=== PATIENT | female | born 1940 | race Caucasian/White ===

== ENCOUNTER 2019-05-26 06:20 | Inpatient (IN) | payer MEDICARE, OTHER ==
[2019-05-26] MEDS ORDERED: NALOXONE 0.4 MG/ML 1 ML VIAL IV PRN (07:21)
--- NOTE | 2019-05-26 07:34 | ED ---
Abdominal Pain HPI - General Chief Complaint: Abdominal Pain Stated Complaint: Kidney Stones Time Seen by Provider: 05/26/19 06:28 Source: patient Mode of arrival: ambulatory Limitations: no limitations - History of Present Illness Initial Comments: Yu is a pleasant 78-year-old female with a history of kidney stones who presents to the emergency department today as a transfer from [facility] for further management of bilateral ureteral stones with mild to moderate hydronephrosis bilaterally, normal kidney function and a urinary tract infe ction. Patient reports she's been feeling unwell throughout the week, she was trying to make it through the weekend until her son could come home and provide transport to the hospital however on Tuesday evening pain became unbearable and her right flank she became nauseated began vomiting and was transported to the [facility] where a full workup revealed a urinary tract infection, computed tomography scan revealed bilateral kidney stones with [id number] hydronephrosis but the lab resulted with a white count of 13 and normal kidney function with a creatinine of 1. The outside facility patient received Rocephin for her urinary tract infection, 3 doses of 4 mg of Zofran and 3 doses of 4 mg of morphine. On arrival to the emergency department patient still reports right-sided flank pain, mild nausea but no vomiting in the past few hours and a generalized feeling of malaise. - Related Data Home Medications Medication Instructions Recorded Confirmed Naproxen Sodium [Aleve] 220 mg PO DAILY 05/26/19 05/26/19 amLODIPine [Norvasc] 10 mg PO DAILY 05/26/19 05/26/19 Allergies Allergy/AdvReac Type Severity Reaction Status Date / Time Tetanus Vaccines and Toxoid Allergy Rash/Hives Verified 05/26/19 07:26 Review of Systems ROS Statement: Those systems with pertinent positive or pertinent negative responses have been documented in the HPI. ROS Other: All systems not noted in ROS Statement are negative. Past Medical History Past Medical History: Hypertension History of Any Multi-Drug Resistant Organisms: None Reported Past Surgical History: Back Surgery, Orthopedic Surgery Additional Past Surgical History / Comment(s): Left Hip replacement Past Psychological History: No Psychological Hx Reported Smoking Status: Never smoker Past Alcohol Use History: None Reported Past Drug Use History: None Reported General Exam - General Exam Comments Initial Comments: Physical Exam GENERAL: Patient is well-developed and well-nourished. Patient is nontoxic and well- hydrated and is in no distress. HENT: Normocephalic, Atraumatic. EYES: PERRL, EOMI PULMONARY: Unlabored respirations. No audible rales rhonchi or wheezing was noted. CARDIOVASCULAR: There is a regular rate and rhythm without any murmurs gallops or rubs. ABDOMEN: Soft and nontender with normal bowel sounds. Right flank pain SKIN: Skin is clear with no lesions or rashes and otherwise unremarkable. : Deferred NEUROLOGIC: Patient is alert and oriented x3. Moving all extremities spontaneously MUSCULOSKELETAL: Normal extremities with adequate strength and full range of motion. No lower extremity swelling or edema. No calf tenderness. PSYCHIATRIC: Normal psychiatric evaluation Limitations: no limitations Course Vital Signs 05/26/19 06:23 Temperature 98.0 F Pulse Rate 71 Respiratory 20 Rate Blood Pressure 137/78 O2 Sat by Pulse 92 L Oximetry Medical Decision Making - Medical Decision Making care was discussed with Dr. soriano the transferring physician. Patient was seen and evaluated immediately upon arrival to the emergency department, transfer records including labs and imaging were reviewed Repeat labs including CBC and CMP were ordered Patient care was discussed with urology Dr. Sharma who recommends patient be made nothing by mouth he will evaluate her images and repeat labs and make a decision if she is eligible for stenting today Given the patient's advanced age and medical comorbidities patient will be admitted to medicine for UTI and pain management, Dr. Sharma will be on consult Patient care was discussed with [facility] [place] Physician Dr Dietz who acepts admission. Disposition Clinical Impression: Ureteral stone with hydronephrosis, UTI (urinary tract infection), Nausea and vomiting Disposition: ADMITTED IP TO THIS HOSP Condition: Stable Referrals: Zay Puri DO [Primary Care Provider] - 1-2 days
[2019-05-26] MEDS: SODIUM CHLORIDE 0.9% 1,000 ML IV SCH (07:46)
[2019-05-26 08:07] LABS: Basophils # (A) 0.1 k/uL (0-0.2); Basophils % (A) 1 %; Eosinophils # (A) 0.1 k/uL (0-0.7); Eosinophils % (A) 1 %; HCT 40.7 % (34.0-46.0); HGB 13.5 gm/dL (11.4-16.0); Lymphocytes # (A) 1.6 k/uL (1.0-4.8); Lymphocytes % (A) 15 %; MCHC 33.2 g/dL (31.0-37.0); MCV 93.6 fL (80.0-100.0); Mean Platelet Volume 6.7; Monocytes # (A) 0.8 k/uL (0-1.0); Monocytes % (A) 7 %; Neutrophils # (A) 7.8 k/uL (1.3-7.7); Neutrophils % (A) 75 %; Platelet Count 260 k/uL (150-450); RBC 4.35 m/uL (3.80-5.40); RDW 13.7 % (11.5-15.5); WBC 10.5 k/uL (3.8-10.6)
[2019-05-26 08:13] LABS: Albumin 3.3 g/dL (3.5-5.0); Calcium 8.4 mg/dL (8.4-10.2); Potassium 4.4 mmol/L (3.5-5.1); Total Bilirubin 0.4 mg/dL (0.2-1.3); Total Protein 6.2 g/dL (6.3-8.2)
--- NOTE | 2019-05-26 11:49 | P.GSCN ---
History of Present Illness Consult date: 05/26/19 Reason for Consult: Bilateral ureteral calculi Requesting physician: Zac Collins History of present illness: The patient is an 78-year-old white female who had one prior episode of urolithiasis approximately 6 years ago. That did not require surgical intervention, as she presumably passed the calculus. She now presents with a five-day history of intermittent right flank pain radiating to the right lower quadrant, associated with nausea, vomiting, and chills. She was evaluated at [facility] and transferred here for further care. A computed tomography scan showed evidence of bilateral moderate moderate hydronephrosis due to a 5-6 mm right distal ureteral calculus and 2 contiguous left proximal u reteral calculi measuring 6-7 mm in size. The ER records suggest that she has a UTI, though the transfer records are incomplete. Review of Systems - Constitutional Reports chills, Denies fever - Gastrointestinal Reports nausea, Reports vomiting - Genitourinary Genitourinary: Reports flank pain, Reports kidney stones, Denies dysuria, Denies hematuria Past Medical History Past Medical History: Hypertension History of Any Multi-Drug Resistant Organisms: None Reported Past Surgical History: Back Surgery, Orthopedic Surgery Additional Past Surgical History / Comment(s): Left Hip replacement Past Psychological History: No Psychological Hx Reported Smoking Status: Never smoker Past Alcohol Use History: None Reported Past Drug Use History: None Reported Medications and Allergies Home Medications Medication Instructions Recorded Confirmed Type Naproxen Sodium [Aleve] 220 mg PO DAILY 05/26/19 05/26/19 History amLODIPine [Norvasc] 10 mg PO DAILY 05/26/19 05/26/19 History Allergies Allergy/AdvReac Type Severity Reaction Status Date / Time Tetanus Vaccines and Toxoid Allergy Rash/Hives Verified 05/26/19 07:26 Surgical - Exam Vital Signs Temp Pulse Resp BP Pulse Ox 98.0 F 71 20 137/78 92 L 05/26/19 06:23 05/26/19 06:23 05/26/19 06:23 05/26/19 06:23 05/26/19 06:23 - General well developed, well nourished, moderate distress - Respiratory normal respiratory effort - Abdomen Abdomen: soft, tender (Mild right-sided tenderness to palpation), no masses, no guarding, no rigid, no rebound - Psychiatric oriented to time, oriented to person, oriented to place, speech is normal, memory intact Results - Labs 05/26/19 07:31 05/26/19 07:31 Abnormal Lab Results - Last 24 Hours (Table) 05/26/19 05/26/19 Range/Units 07:31 07:31 Neutrophils # 7.8 H (1.3-7.7) k/uL Chloride 113 H (98-107) mmol/L Glucose 104 H (74-99) mg/dL Total Protein 6.2 L (6.3-8.2) g/dL Albumin 3.3 L (3.5-5.0) g/dL Diabetes panel 05/26/19 Range/Units 07:31 Sodium 142 (137-145) mmol/L Potassium 4.4 (3.5-5.1) mmol/L Chloride 113 H (98-107) mmol/L Carbon Dioxide 22 (22-30) mmol/L BUN 14 (7-17) mg/dL Creatinine 0.88 (0.52-1.04) mg/dL Glucose 104 H (74-99) mg/dL Calcium 8.4 (8.4-10.2) mg/dL AST 22 (14-36) U/L ALT 24 (9-52) U/L Alkaline Phosphatase 67 (38-126) U/L Total Protein 6.2 L (6.3-8.2) g/dL Albumin 3.3 L (3.5-5.0) g/dL Calcium panel 05/26/19 Range/Units 07:31 Calcium 8.4 (8.4-10.2) mg/dL Albumin 3.3 L (3.5-5.0) g/dL Pituitary panel 05/26/19 Range/Units 07:31 Sodium 142 (137-145) mmol/L Potassium 4.4 (3.5-5.1) mmol/L Chloride 113 H (98-107) mmol/L Carbon Dioxide 22 (22-30) mmol/L BUN 14 (7-17) mg/dL Creatinine 0.88 (0.52-1.04) mg/dL Glucose 104 H (74-99) mg/dL Calcium 8.4 (8.4-10.2) mg/dL Adrenal panel 05/26/19 Range/Units 07:31 Sodium 142 (137-145) mmol/L Potassium 4.4 (3.5-5.1) mmol/L Chloride 113 H (98-107) mmol/L Carbon Dioxide 22 (22-30) mmol/L BUN 14 (7-17) mg/dL Creatinine 0.88 (0.52-1.04) mg/dL Glucose 104 H (74-99) mg/dL Calcium 8.4 (8.4-10.2) mg/dL Total Bilirubin 0.4 (0.2-1.3) mg/dL AST 22 (14-36) U/L ALT 24 (9-52) U/L Alkaline Phosphatase 67 (38-126) U/L Total Protein 6.2 L (6.3-8.2) g/dL Albumin 3.3 L (3.5-5.0) g/dL - Imaging CT scan - abdomen: report reviewed, image reviewed Assessment and Plan (1) Ureteral stone with hydronephrosis Current Visit: Yes Status: Acute Code(s): N13.2 - HYDRONEPHROSIS WITH RENAL AND URETERAL CALCULOUS OBSTRUCTION SNOMED Code(s): 993978249 (2) Calculus of kidney Current Visit: Yes Status: Acute Code(s): N20.0 - CALCULUS OF KIDNEY SNOMED Code(s): 08327492 Plan: A KUB x-ray has been ordered, as well as a UA, C&S. She will be treated with Rocephin. Arrangements have been made for her to undergo cystoscopy with bilateral ureteral stent insertion tomorrow. The rationale for this approach was reviewed in detail with the patient, as were the potential risks. These include anesthesia, bleeding, infection, inability to place the stents, and ureteral injury. She understands that a secondary procedure, either ESWL or ureteroscopy with laser lithotripsy, will be recommended in the next several weeks to remove the calculi. Time with Patient: Greater than 30
--- NOTE | 2019-05-26 11:59 | P.HPIM ---
History of Present Illness H&P Date: 05/26/19 Chief Complaint: samantha strauss pt is an 78 yo white female who was evluated at [facility] for 5 days history of not feeling well. She has been nauseated but no vomiting , no cp no sob. She has been lethargic. She was found to have bilateral moderate moderate hydronephrosis due to a 5-6 mm right distal ureteral calculus and 2 contiguous left proximal ureteral c alculi measuring 6-7 mm in size. She has had a similar presentation several years ago. Review of Systems 10 systems reviewed pertinent positive and negative findings as in HPI. No chest pain positive for abdominal pain and nausea Past Medical History Past Medical History: Hypertension History of Any Multi-Drug Resistant Organisms: None Reported Past Surgical History: Back Surgery, Orthopedic Surgery Additional Past Surgical History / Comment(s): Left Hip replacement Past Psychological History: No Psychological Hx Reported Smoking Status: Never smoker Past Alcohol Use History: None Reported Past Drug Use History: None Reported Medications and Allergies Home Medications Medication Instructions Recorded Confirmed Type Naproxen Sodium [Aleve] 220 mg PO DAILY 05/26/19 05/26/19 History amLODIPine [Norvasc] 10 mg PO DAILY 05/26/19 05/26/19 History Allergies Allergy/AdvReac Type Severity Reaction Status Date / Time Tetanus Vaccines and Toxoid Allergy Rash/Hives Verified 05/26/19 07:26 Physical Exam Vitals: Vital Signs Temp Pulse Pulse Resp BP BP Pulse Ox 05/26/19 08:59 97.9 F 75 15 133/74 93 L 05/26/19 08:00 97.9 F 71 75 15 114/76 94 L 05/26/19 06:23 98.0 F 71 20 137/78 92 L Intake and Output 05/25/19 05/26/19 05/26/19 22:59 06:59 14:59 Other: Voiding Method Toilet Weight 81.647 kg Constitutional: No acute distress, conversant, pleasant Eyes: Anicteric sclerae, moist conjunctiva ENMT: NC/AT no erythema, exudates Neck:Supple, FROM Lungs: Clear to auscultation, Clear to percussion, Normal respiratory effort, no accessory muscle use Cardiovascular: Heart regular in rate and rhythm, No murmurs, gallops, or rubs no peripheral edema Abdominal: Soft Nontender, nom distended, no guarding, no rebound or rigidity, Normoactive bowel sounds No hepatomegaly, No splenomegaly, No palpable mass No abdominal wall hernia noted Skin: Normal temperature, tone, texture, turgor, No induration No subcutaneous nodules, No rash, lesions, No ulcers Extremities:No digital cyanosis No clubbing, Pedal pulses intact and symmetrical Radial pulses intact and symmetrical Normal gait and station, No calf tenderness Psychiatric: Alert and oriented to person, place and time, Appropriate affect Intact judgement Neuro: Muscles Strength 5/5 in all 4 extremities, Sensation to light touch grossly present throughout, Cranial nerves II-XII grossly intact. No focal sensory deficits Results CBC & Chem 7: 05/26/19 07:31 05/26/19 07:31 Labs: Abnormal Lab Results - Last 24 Hours (Table) 05/26/19 05/26/19 Range/Units 07:31 07:31 Neutrophils # 7.8 H (1.3-7.7) k/uL Chloride 113 H (98-107) mmol/L Glucose 104 H (74-99) mg/dL Total Protein 6.2 L (6.3-8.2) g/dL Albumin 3.3 L (3.5-5.0) g/dL Thrombosis Risk Factor Assmnt - Choose All That Apply Any of the Below Risk Factors Present?: Yes Each Factor Represents 1 point: Obesity (BMI >25) Other Risk Factors: No Thrombosis Risk Factor Assessment Total Risk Factor Score: 1 Thrombosis Risk Factor Assessment Level: Low Risk Assessment and Plan Assessment: 1. Ureteral stone with hydronephrosis: IV fluids, pain control, appreciate urology input, plan for cystoscopy and stent placement tomorrow 2. Questionable UTI: Continue Rocephin, repeat urine analysis is 3. Essential hypertension: Hold antihypertensives and the patient is more hemodynamically stable 4. Hypovolemia: Normal saline at 100 mm per hour DVT prophylaxis: SCDs
--- NOTE | 2019-05-26 12:34 | XR ---
EXAMINATION TYPE: XR KUB DATE OF EXAM: 05/26/2019 COMPARISON: CT abdomen pelvis with Liliana marj INDICATION: Ureteral calculi TECHNIQUE: Single view abdomen frontal projection FINDINGS: There is a normal bowel gas pattern. Psoas margins are normal. No organomegaly is present. A 0.3 cm calcification may overlie the mid to inferior pole left kidney. Faint calcification may be n ear the right renal pelvis estimated at 1.0 x 0.9 cm. This correlates with the CT exam. A mid right ureteral stone measuring 0.5 cm may be at the level of the left L3-4 disc level over the psoas muscle . This appears to correlate with the CT exam. IMPRESSION: 1. Suspected renal calcifications discussed above. These appear smaller than the corresponding CT exa mination. 2. Left ureteral calcification measuring 0.5 cm may be in the mid to proximal portion of the ureter c orrelates with location on CT examination.
[2019-05-26] MEDS: MORPHINE SULFATE 4 MG/ML SYRINGE IV PRN ×2 (15:02→20:49)
[2019-05-26 18:15] LABS: Appearance,Urine Cloudy (Clear); Bacteria,Urine Rare /hpf; Bilirubin,Urine Negative (Negative); Blood,Urine Small (Negative); Budding Yeast,Urine Few /hpf; Color,Urine Yellow; Glucose,Urine (UA) Negative (Negative); Ketones,Urine Negative (Negative); Leukocyte Esterase,Urine Large (Negative); Mucus,Urine Rare /hpf; Nitrite,Urine Negative (Negative); Protein,Urine Negative (Negative); RBC,Urine 34 /hpf (0-5); Specific Gravity,Urine 1.012 (1.001-1.035); Squamous Epithelial Cell,Urine 1 /hpf (0-4); Urobilinogen,Urine <2.0 mg/dL (<2.0)
[2019-05-26] MEDS: ONDANSETRON 4 MG/2 ML VIAL IVP PRN (20:49)
[2019-05-27] MEDS: SODIUM CHLORIDE 0.9% 1,000 ML IV SCH ×2 (01:00→21:48)
[2019-05-27 07:29] LABS: Basophils # (A) 0.1 k/uL (0-0.2); Basophils % (A) 1 %; Eosinophils # (A) 0.2 k/uL (0-0.7); Eosinophils % (A) 2 %; HCT 41.7 % (34.0-46.0); HGB 13.5 gm/dL (11.4-16.0); Lymphocytes # (A) 1.9 k/uL (1.0-4.8); Lymphocytes % (A) 18 %; MCH 30.5 pg (25.0-35.0); MCHC 32.2 g/dL (31.0-37.0); MCV 94.8 fL (80.0-100.0); Mean Platelet Volume 6.8; Monocytes # (A) 0.8 k/uL (0-1.0); Monocytes % (A) 7 %; Neutrophils # (A) 7.7 k/uL (1.3-7.7); Neutrophils % (A) 72 %; Platelet Count 251 k/uL (150-450); RDW 13.8 % (11.5-15.5); WBC 10.8 k/uL (3.8-10.6)
[2019-05-27 07:52] LABS: Albumin 3.3 g/dL (3.5-5.0); Calcium 8.6 mg/dL (8.4-10.2); Total Bilirubin 0.6 mg/dL (0.2-1.3); Total Protein 6.3 g/dL (6.3-8.2)
[2019-05-27] MEDS ORDERED: MIDAZOLAM 2 MG/2 ML VIAL ONE (08:15)
[2019-05-27] MEDS ORDERED: LIDOCAINE 1% INJ 10MG/ML (20 ML MDV) ONE (08:15)
[2019-05-27] MEDS ORDERED: fentaNYL (PF) 50 MCG/ML 2 ML AMP ONE (08:15)
[2019-05-27] MEDS ORDERED: PROPOFOL 10 MG/ML 20 ML VIAL IV ONE (08:15)
[2019-05-27] MEDS ORDERED: IV FLUID CONTINUATION 600 ML IV ONE (08:20)
[2019-05-27] MEDS ORDERED: IOPAMIDOL-370 50ML BTL MISCELLANE ONE (09:02)
--- NOTE | 2019-05-27 09:32 | FL ---
Fluoroscopy INDICATION: Pain FINDINGS: Fluoroscopy time: 7 minutes 10 seconds. Images obtained: 3. IMPRESSIONS: 1. Documentation of fluoroscopy.
--- NOTE | 2019-05-27 09:32 | P.OP ---
Date of Procedure: 05/27/19 Preoperative Diagnosis: Bilateral hydronephrosis secondary to bilateral ureteral calculi Postoperative Diagnosis: Same Procedure(s) Performed: Cystoscopy, right ureteral stent insertion, left retrograde pyelogram, attempted left ureteral stent insertion Anesthesia: TANJAA Surgeon: Vern Hopper Estimated Blood Loss (ml): 0 IV fluids (ml): 200 Pathology: none sent Condition: stable Disposition: PACU Indications for Procedure: The patient is an 78-year-old white female admitted yesterday with right renal colic. A computed tomography scan showed evidence of bilateral moderate moderate hydronephrosis due to a 5-6 mm right distal ureteral calculus and 2 contiguous left proximal ureteral calculi measuring 6-7 mm in size. Urinalysis is consistent with infection, but she has been afebrile. She now comes for bilateral ureteral stent insertion. Operative Findings: Obstructing right distal ureteral calculus. Right ureteral stent successfully placed. Obstructing left proximal ureteral calculi, preventing left ureteral stent placement. Description of Procedure: The patient was taken to the operating room and placed in the dorsolithotomy position, with legs supported in Zuhair stirrups. The external genitalia was prepped and draped sterilely. The 30 lens was used to introduce the 22-Mohawk Stortz cystoscopic sheath through the urethra and into the bladder under direct vision. The bladder was examined in its entirety. Both ureteral orifices were of normal anatomic location and configuration. No tumors or foreign bodies were seen. An angle-tip 0.035 inch Glidewire was passed through the cystoscope. The right ureteral orifice was cannulated, and the Glidewire was slowly advanced. With some difficulty, it was possible to pass the Glidewire beyond the obstructing right distal ureteral calculus and up to the renal pelvis. A 24 cm, 6-Mohawk double-J ureteral stent was placed over the wire. Proper stent positioning was verified fluoroscopically and endoscopically. Cloudy urine drained from the right renal pelvis. The same was then attempted on the contralateral side. However, the Glidewire could not be passed beyond the obstructing left proximal ureteral calculi. A 6-Mohawk open-ended catheter was passed over the wire, but multiple attempts to pass the Glidewire beyond the calculi were unsuccessful. Contrast was injected, revealing some tortuosity of the ureter distal to an obstructing ureteral calculus. Attempts were also made to pass a straight Glidewire, but these were unsuccessful. The ureteral catheter was removed along with the Glidewire, and the procedure was terminated. The patient tolerated the procedure well was taken to the recovery room in stable condition.
[2019-05-27] MEDS: MORPHINE SULFATE 4 MG/ML SYRINGE IV PRN ×2 (10:11→16:11)
[2019-05-27] MEDS: amLODIPine 10 MG TAB PO SCH (10:22)
--- NOTE | 2019-05-27 12:46 | P.PN ---
Subjective Progress Note Date: 05/27/19 Principal diagnosis: Ureteral stones Feels better, she is status post stent placement, no nausea no vomiting, continues to have some lower abdominal pressure. Objective - Vital Signs Vital signs: Vital Signs Temp 98.1 F 05/27/19 10:02 Pulse 71 05/27/19 11:47 Resp 15 05/27/19 10:02 BP 120/81 05/27/19 11:47 Pulse Ox 92 L 05/27/19 10:02 Intake & Output 05/26/19 05/27/19 05/27/19 18:59 06:59 18:59 Intake Total 780 300 Output Total 0 Balance 780 300 Intake: IV 300 Oral 780 Output: Estimated Blood Loss 0 Other: Voiding Method Toilet Toilet Toilet - Exam Constitutional: No acute distress, conversant, pleasant Eyes: Anicteric sclerae ENMT: NC/AT Neck:Supple, FROM Lungs: Clear to auscultation, Clear to percussion, Normal respiratory effort, no accessory muscle use Cardiovascular: Heart regular in rate and rhythm, No murmurs, gallops, or rubs Abdominal: Soft Nontender, non distended, no guarding, no rebound or rigidity, Skin: Normal temperature Extremities:No digital cyanosis No clubbing, Pedal pulses intact and symmetrical Radial pulses intact and symmetrical Normal gait and station Psychiatric: Alert and oriented to person, place and time, Appropriate affect Intact judgement Neuro: Muscles Strength 5/5 in all 4 extremities, Sensation to light touch grossly present throughout, Cranial nerves II-XII grossly intact. No focal sensory deficits - Labs CBC & Chem 7: 05/27/19 07:13 05/27/19 07:13 Labs: Abnormal Lab Results - Last 24 Hours (Table) 05/26/19 05/27/19 05/27/19 Range/Units 17:55 07:13 07:13 WBC 10.8 H (3.8-10.6) k/uL Chloride 111 H (98-107) mmol/L Creatinine 1.09 H (0.52-1.04) mg/dL Albumin 3.3 L (3.5-5.0) g/dL Urine Appearance Cloudy H (Clear) Urine Blood Small H (Negative) Ur Leukocyte Esterase Large H (Negative) Urine RBC 34 H (0-5) /hpf Urine WBC 133 H (0-5) /hpf Urine Bacteria Rare H (None) /hpf Urine Mucus Rare H (None) /hpf Urine Yeast (Budding) Few H (None) /hpf Microbiology - Last 24 Hours (Table) 05/26/19 17:55 Urine Culture - Preliminary Urine,Clean Catch Assessment and Plan Assessment: 1. Ureteral stone with hydronephrosis: sp Cystoscopy, right ureteral stent insertion, left retrograde pyelogram, attempted left ureteral stent insertion IV fluids, pain control, appreciate urology input 2. acute UTI, unspecified location or organism: Continue Rocephin 3. Essential hypertension: Hold antihypertensives and the patient is more hemodynamically stable 4. Hypovolemia: Continue Normal saline at 100 mm per hour DVT prophylaxis: SCDs Disposition: Home in 1-2 days
[2019-05-27] MEDS: ONDANSETRON 4 MG/2 ML VIAL IVP PRN (16:13)
[2019-05-28] MEDS: SODIUM CHLORIDE 0.9% 1,000 ML IV SCH ×2 (05:17→07:33)
[2019-05-28] MEDS: amLODIPine 10 MG TAB PO SCH (07:27)
[2019-05-28 07:45] VITALS: BP 104/62; PULSE 79; RESP 16; TEMP 99.2
--- NOTE | 2019-05-28 08:13 | P.PN ---
Progress Note - Text Progress Note Date: 05/28/19 The patient states that her right flank pain is much improved. She denies left flank pain. She is afebrile, and her urine culture was negative. She does report increased urinary frequency, undoubtedly due to the stent. From my standpoint, she may be discharged home. I have prescribed oxybutynin chloride to help with the urinary frequency. Arrangements will be made for her to undergo outpatient cystoscopy, right ureteral stent removal, bilateral ureteroscopy with laser lithotripsy in 1 week. Please notify me if I can be of any further assistance.
[2019-05-28 08:21] LABS: Basophils # (A) 0.1 k/uL (0-0.2); Basophils % (A) 1 %; Eosinophils # (A) 0.2 k/uL (0-0.7); Eosinophils % (A) 3 %; HCT 38.3 % (34.0-46.0); HGB 12.4 gm/dL (11.4-16.0); Lymphocytes # (A) 1.4 k/uL (1.0-4.8); Lymphocytes % (A) 18 %; MCH 30.6 pg (25.0-35.0); MCHC 32.3 g/dL (31.0-37.0); MCV 94.8 fL (80.0-100.0); Mean Platelet Volume 6.9; Monocytes # (A) 0.6 k/uL (0-1.0); Monocytes % (A) 7 %; Neutrophils # (A) 5.8 k/uL (1.3-7.7); Neutrophils % (A) 71 %; Platelet Count 216 k/uL (150-450); RBC 4.04 m/uL (3.80-5.40); RDW 13.6 % (11.5-15.5); WBC 8.2 k/uL (3.8-10.6)
[2019-05-28 08:38] LABS: ALT 22 U/L (9-52); AST 22 U/L (14-36); African American GFR (CKD) >90 (>60 ml/min/1.73 sqM); Alkaline Phosphatase 67 U/L (38-126); Anion Gap 4 mmol/L; Blood Urea Nitrogen 10 mg/dL (7-17); Calcium 8.6 mg/dL (8.4-10.2); Carbon Dioxide 28 mmol/L (22-30); Chloride 109 mmol/L (98-107); Glucose 113 mg/dL (74-99); Potassium 3.7 mmol/L (3.5-5.1); Sodium 141 mmol/L (137-145); Total Bilirubin 0.5 mg/dL (0.2-1.3); Total Protein 5.8 g/dL (6.3-8.2)
--- NOTE | 2019-05-28 11:33 | P.DS ---
Providers Date of admission: 05/26/19 07:22 Expected date of discharge: 05/28/19 Attending physician: Zac Collins MD Consults: 05/26/19 07:21 Consult Physician Stat Consulting Provider: Vern Hopper Consult Reason/Comments: stones with hydro Do you want consulting provider notified?: Already Contacted Primary care physician: Zay Puri Hospital Course: Discharge Diagnosis: Hydronephrosis due to right uretheral calculus s/p stenting UTI HTN Clinical dehydration Hospital Course: Patient's an 78-year-old female with a past medical history of hypertension, osteoarthritis, and gait instability requiring walker use who presented as a transfer from [facility] secondary to hydronephrosis with obstructive renal calculi. On arrival here it was noted that she had a urinary tract infection and she was placed on Rocephin. Laboratory analysis on arrival was essentially unremarkable. She was seen by urology who felt she had an obstructive renal calculi. She underwent a KUB which showed calcification near the right renal pelvis and right urethral stone. She underwent cystoscopy, right urethral stent insertion, left retrograde pyelogram, and attempted left urethral stent insertion on 05/26/19. They were not able to pass the guidewire beyond the obstructing left proximal ureteral calculi. Dye was injected revealing tortuosity of the ureter distal to the obstruction. She continues to do well after the procedure. She did not spike any fevers. Urine culture here revealed 10-50,000 urogenital jose. She continued to do well just determined stable for discharge home. She'll complete an additional 3 days of Vantin. She hasn't [place] prescription for 3 days and if her pain increases she'll follow-up with her PCP for further prescriptions. She'll follow up with Dr. Hermosillo in 3 days as well as Dr. Miguel in 1 week Patient seen and examined at bedside. Vital signs reviewed and stable. General: non toxic, no distress, appears at stated age Derm: warm, dry Head: atraumatic, normocephalic, symmetric Eyes: EOMI, no lid lag, anicteric sclera Mouth: no lip lesion, mucus membranes moist Cardiovascular: S1S2 reg, no murmur, positive posterior tibial pulse bilateral, Lungs: CTA bilateral, no rhonchi, no rales , no accessory muscle use Abdominal: soft, nontender to palpation, no guarding, no appreciable organomegaly Ext: no gross muscle atrophy, no edema, no contractures Neuro: CN II-XI grossly intact, no focal neuro deficits Psych: Alert, oriented, appropriate affect A total of 35 minutes of time were spent preparing this complex discharge summary . Pertinent Studies: She underwent a KUB which showed calcification near the right renal pelvis and right urethral stone. Procedures: She underwent cystoscopy, right urethral stent insertion, left retrograde py elogram, and attempted left urethral stent insertion on 05/26/19. Patient Condition at Discharge: Stable Plan - Discharge Summary New Discharge Prescriptions: New Oxybutynin Chloride [Oxybutynin Chloride ER] 10 mg PO DAILY #21 tab.er.[email or web address] HYDROcodone/APAP 5-325MG [[place] 5] 1 each PO Q6HR PRN #12 tab PRN Reason: Pain Cefpodoxime Proxetil [Vantin] 200 mg PO Q12HR #6 tab Continue amLODIPine [Norvasc] 10 mg PO DAILY Naproxen Sodium [Aleve] 220 mg PO DAILY Discharge Medication List Naproxen Sodium [Aleve] 220 mg PO DAILY 05/26/19 [History] amLODIPine [Norvasc] 10 mg PO DAILY 05/26/19 [History] Cefpodoxime Proxetil [Vantin] 200 mg PO Q12HR #6 tab 05/28/19 [Rx] HYDROcodone/APAP 5-325MG [[place] 5] 1 each PO Q6HR PRN #12 tab 05/28/19 [Rx] Oxybutynin Chloride [Oxybutynin Chloride ER] 10 mg PO DAILY #21 tab.er.[email or web address] 05/28/19 [Rx] Follow up Appointment(s)/Referral(s): Zay Puri DO [Primary Care Provider] - 1-2 days
== END 2019-05-28 15:06 | disposition home or self-care (01) | DRG 661 ==
LOC: EC 06:20 → 4SSUR 07:22
PROVIDERS: ADMIT Internal Medicine; ATTEND Internal Medicine
PROC: BT1F1ZZ Fluoroscopy of Left Kidney, Ureter and Bladder using Low Osmolar Contrast (ICD-10-PCS; 2019-05-27)
PROC: 0T768DZ Dilation of Right Ureter with Intraluminal Device, Via Natural or Artificial Opening Endoscopic (ICD-10-PCS; principal; 2019-05-27 08:00)
DX: N13.6 Pyonephrosis (principal); E86.0 Dehydration; I10 Essential (primary) hypertension; M19.90 Unspecified osteoarthritis, unspecified site; R26.9 Unspecified abnormalities of gait and mobility; Z79.899 Other long term (current) drug therapy; Z87.442 Personal history of urinary calculi; Z96.642 Presence of left artificial hip joint; Z88.7 Allergy status to serum and vaccine
CPT/HCPCS: 74018; 74420; 80053; 81001; 85025; 87086; 99284